=== PATIENT | female | born 1965 | race Asian ===

== ENCOUNTER → 2016-09-30 | Outpatient (CLI) | payer BC ==
--- NOTE | 2016-09-30 10:06 | MM ---
Reason for exam: screening (asymptomatic). Last mammogram was performed 1 year and 1 month ago. History: Benign US breast aspiration single LT of the left breast, September 23, 2014. Took hormonal contraceptives for 2 years. Physical Findings: A clinical breast exam by your physician is recommended on an annual basis and results should be correlated with mammographic findings. MG Screening Mammo w CAD Bilateral CC and MLO view(s) were taken. Prior study comparison: September 15, 2015, bilateral MG screening mammo w CAD. September 23, 2014, left breast MG diagnostic mammo LT wo CAD. September 13, 2014, bilateral MG screening mammo w CAD. September 10, 2013, bilateral MG screening mammo w CAD. The breast tissue is heterogeneously dense. This may lower the sensitivity of mammography. Finding: There is a 9 mm round mass in the lower inner quadrant, anterior position of the left breast. Previous mammotome biopsy in the left breast. Increase in size since September 15, 2015. ASSESSMENT: Incomplete: need additional imaging evaluation, BI-RAD 0 RECOMMENDATION: Ultrasound of the left breast. [facility] will attempt to contact patient to return for ultrasound.
== END | disposition home or self-care (01) ==
LOC: RADMAMWWP 08:36
PROVIDERS: ATTEND Family Medicine
DX: Z12.31 Encounter for screening mammogram for malignant neoplasm of breast (principal); R92.2 Inconclusive mammogram

== ENCOUNTER → 2016-10-01 | Outpatient (CLI) | payer BC ==
--- NOTE | 2016-10-01 11:23 | USB ---
Reason for exam: additional evaluation requested from abnormal screening. History: Benign US breast aspiration single LT of the left breast, September 23, 2014. Took hormonal contraceptives for 2 years. Physical Findings: Nurse did not find any significant physical abnormalities on exam. US Breast Workup Limited LT Left breast ultrasound demonstrates a 11 x 10 x 9mm septated cyst with debris at prior aspiration site at 9 o'clock. These results were verbally communicated with the patient and result sheet given to the patient on 10/01/16. ASSESSMENT: Suspicious, BI-RAD 4 RECOMMENDATION: Aspiration of the left breast. Called Dr. Delarosa/ Dr. Burns with mammographic findings and has scheduled an appointment for the patient for 10/16/16 at 10:[address] Da Silva. Left cyst aspiration scheduled for 10/09/16 at 2:20. PRELIMINARY REPORT CALLED AND FAXED TO DR. DA SILVA ON 10/01/16 AT 300/TMP.
== END | disposition home or self-care (01) ==
LOC: RADUSWWP 09:13
PROVIDERS: ATTEND Family Medicine
DX: R92.8 Other abnormal and inconclusive findings on diagnostic imaging of breast (principal)

== ENCOUNTER → 2016-10-09 | Day surgery (SDC) | payer BC ==
[2016-10-09 14:18] VITALS: RESP 16; BMI 30.2
--- NOTE | 2016-10-09 15:07 | USB ---
EXAMINATION TYPE: US breast aspiration single LT DATE OF EXAM: 10/09/2016 CLINICAL HISTORY: N63 Breast Lump/mass. Increasing size nonsimple cysts left breast. Abnormal ultrasound. TECHNIQUE: Ultrasound guided fine-needle aspiration of left breast. COMPARISON: Recent ultrasound October 01, 2016 and older studies. FINDINGS: The procedure of ultrasound guided fine-needle aspiration and/or core biopsy were both explained to the patient. Benefits, alternatives, and risks were discussed. An informed consent was then obtained. The patient was placed in supine positioning for imaging and for the procedure. Preprocedure imaging redemonstrates oval not completely anechoic slightly lobulated approximately 1 cm lesion 9:00 position in left breast. The overlying skin was prepped and draped in usual sterile fashion. Lidocaine is used as anesthetic into the skin and subcutaneous tissue up to tissue up to area of concern in the left breast. Under ultrasound guidance, a 20-gauge spinal needle advanced within the lesion and there is complete aspiration to resolution. Clip is not deployed as there is already clip present from prior aspiration at this level. There is no suspicious blood product, aspirated fluid was just over 1 cc of cloudy fluid. Biopsy was not performed as no suspicious residual area was identified after aspiration. The patient tolerated the procedure well without any immediate complication. The patient was kept in the radiology department for short stay after the procedure and then discharged home in stable condition. IMPRESSION: Successful, uncomplicated ultrasound guided fine-needle aspiration of area of concern in the left breast, full pathology results to follow. Low index of suspicion noted at time of procedure. Pathology Results: Benign BREAST, LEFT, FINE NEEDLE ASPIRATE: CYST MACROPHAGES AND APOCRINE CELLS CONSISTENT WITH APOCRINE CYST. RECOMMEND CLINICAL AND IMAGING CORRELATION AND FOLLOW UP INDICATED. Recommendation Follow up mammogram of the left breast in 6 months. MTDD
[2016-10-09 15:26] VITALS: BP 151/96; PULSE 83; TEMP 98.2
== END ==
LOC: RADUSWWP 13:47
PROVIDERS: ATTEND Surgery
DX: N60.02 Solitary cyst of left breast (principal); R92.8 Other abnormal and inconclusive findings on diagnostic imaging of breast
CPT/HCPCS: 88305; 88173; 76942; 19000; J2001

== ENCOUNTER → 2017-05-08 | Outpatient (CLI) | payer BC ==
--- NOTE | 2017-05-08 13:29 | MM ---
Reason for exam: follow-up at short interval from prior study. Last mammogram was performed 7 months ago. History: Benign US breast aspiration single LT of the left breast, October 09, 2016. Benign US breast aspiration single LT of the left breast, September 23, 2014. Took hormonal contraceptives for 2 years. Physical Findings: Nurse did not find any significant physical abnormalities on exam. MG Diagnostic Mammo LT w CAD CC and MLO view(s) were taken of the left breast. Prior study comparison: September 30, 2016, bilateral MG screening mammo w CAD. September 15, 2015, bilateral MG screening mammo w CAD. The breast tissue is heterogeneously dense. This may lower the sensitivity of mammography. Previous mammotome biopsy in the left breast. There is chronic nodularity in the left breast at clip. There is no discrete abnormality. These results were verbally communicated with the patient and result sheet given to the patient on 05/08/17. ASSESSMENT: Benign, BI-RAD 2 RECOMMENDATION: Return to routine screening mammogram schedule for both breasts. Back on schedule.
== END | disposition home or self-care (01) ==
LOC: RADMAMWWP 12:24
PROVIDERS: ATTEND Family Medicine
DX: R92.8 Other abnormal and inconclusive findings on diagnostic imaging of breast (principal)
CPT/HCPCS: 77065

== ENCOUNTER → 2017-10-20 | Outpatient (CLI) | payer BC ==
--- NOTE | 2017-10-21 09:44 | MM ---
Reason for exam: screening (asymptomatic). Last mammogram was performed 5 months ago. History: Benign US breast aspiration single LT of the left breast, October 09, 2016. Benign US breast aspiration single LT of the left breast, September 23, 2014. Took hormonal contraceptives for 2 years. Physical Findings: A clinical breast exam by your physician is recommended on an annual basis and results should be correlated with mammographic findings. MG Screening Mammo w CAD Bilateral CC and MLO view(s) were taken. Prior study comparison: May 08, 2017, left breast MG diagnostic mammo LT w CAD. September 30, 2016, bilateral MG screening mammo w CAD. The breast tissue is heterogeneously dense. This may lower the sensitivity of mammography. There is no discrete abnormality. No significant changes when compared with prior studies. ASSESSMENT: Negative, BI-RAD 1 RECOMMENDATION: Routine screening mammogram of both breasts in 1 year.
== END | disposition home or self-care (01) ==
LOC: RADMAMWWP 09:17
PROVIDERS: ATTEND Family Medicine
DX: Z12.31 Encounter for screening mammogram for malignant neoplasm of breast (principal)
CPT/HCPCS: 77067

== ENCOUNTER → 2018-11-05 | Outpatient (CLI) | payer BC ==
--- NOTE | 2018-11-06 09:54 | MM ---
Reason for exam: screening (asymptomatic). Last mammogram was performed 1 year and 1 month ago. History: Benign US breast aspiration single LT of the left breast, October 09, 2016. Benign US breast aspiration single LT of the left breast, September 23, 2014. Took hormonal contraceptives for 2 years. Physical Findings: A clinical breast exam by your physician is recommended on an annual basis and results should be correlated with mammographic findings. MG Screening Mammo w CAD Bilateral CC and MLO view(s) were taken. Prior study comparison: October 20, 2017, bilateral MG screening mammo w CAD. May 08, 2017, left breast MG diagnostic mammo LT w CAD. The breast tissue is heterogeneously dense. This may lower the sensitivity of mammography. Previous mammotome biopsy in the left breast. There is chronic nodularity in the left breast at clip. There is no discrete abnormality. ASSESSMENT: Benign, BI-RAD 2 RECOMMENDATION: Routine screening mammogram of both breasts in 1 year.
== END | disposition home or self-care (01) ==
LOC: RADMAMWWP 07:58
PROVIDERS: ATTEND Family Medicine
DX: Z12.31 Encounter for screening mammogram for malignant neoplasm of breast (principal)
CPT/HCPCS: 77067

== ENCOUNTER → 2020-01-12 | Outpatient (CLI) | payer BC ==
--- NOTE | 2020-01-14 10:41 | MM ---
Reason for exam: screening (asymptomatic). Last mammogram was performed 1 year and 2 months ago. History: Benign US breast aspiration single LT of the left breast, October 09, 2016. Benign US breast aspiration single LT of the left breast, September 23, 2014. Took hormonal contraceptives for 2 years. Physical Findings: A clinical breast exam by your physician is recommended on an annual basis and results should be correlated with mammographic findings. MG Screening Mammo w CAD Bilateral CC and MLO view(s) were taken. Prior study comparison: November 05, 2018, bilateral MG screening mammo w CAD. October 20, 2017, bilateral MG screening mammo w CAD. The breast tissue is heterogeneously dense. This may lower the sensitivity of mammography. Previous mammotome biopsy in the left breast. Focal asymmetry left lower inner quadrant. No significant changes when compared with prior studies. ASSESSMENT: Benign, BI-RAD 2 RECOMMENDATION: Routine screening mammogram of both breasts in 1 year.
== END | disposition home or self-care (01) ==
LOC: RADMAMWWP 08:45
PROVIDERS: ATTEND Family Medicine
DX: Z12.31 Encounter for screening mammogram for malignant neoplasm of breast (principal)
CPT/HCPCS: 77067

== ENCOUNTER → 2020-02-15 | Outpatient (CLI) | payer BC ==
--- NOTE | 2020-02-15 15:59 | BD ---
EXAMINATION TYPE: Axial Bone Density DATE OF EXAM: 02/15/2020 COMPARISON: NONE CLINICAL HISTORY: 54 YR OLD FEMALE....ICD-10 CODE: Z13.820 OSTEOPOROSIS SCREENING, M89.9 BONE DISO RDER Height: 58.2 Weight: 159 FRAX RISK QUESTIONS: NOTHING TO NOTE HERE RISK FACTORS HISTORY OF: Diet low in dairy products/other sources of calcium: YES Postmenopausal woman: YES, AT 53 Hyperparathyroidism: NO Adrenal Insufficiency: NO MEDICATIONS: Additional Medications: VIT D AND IRON PILLS Additional History: NOTHING ADDITIONAL TO NOTE HERE EXAM MEASUREMENTS: Bone mineral densitometry was performed using the [employer] System. Bone mineral density as measured about the Lumbar spine is: ----- L1-L4(G/cm2): 1.108 T Score Values are as follows: ----- L1: -0.3 ----- L2: -1.4 ----- L3: -1.0 ----- L4: 0.2 ----- L1-L4: -0.6 Bone mineral density THIS IS HER FIRST BONE DENSITY.....BASELINE STUDY Bone mineral density about the R hip (g/cm2): 1.123 Bone mineral density about the L hip (g/cm2): 1.164 T Score values are as follows: -----R Neck: -0.5 -----L Neck: -0.6 -----R Total: 0.9 -----L Total: 1.2 Bone mineral density BASELINE STUDY FRAX%s: THERE IS A 2.7% CHANCE FOR A MAJOR OSTEOPOROTIC FX AND A 0.1% FOR HIP......PROBABILITY FOR FX IN 10 YRS TIME IMPRESSION: Normal (Values between +1 and -1 indicate normal bone mass). Consider repeating this study in 5 year s or sooner if there is some new clinical indication. NOTE: T-SCORE=SD OF THE YOUNG ADULT MEAN.
== END | disposition home or self-care (01) ==
LOC: RADBDWWP 09:04
PROVIDERS: ATTEND Obstetrics & Gynecology
DX: Z13.820 Encounter for screening for osteoporosis (principal)
CPT/HCPCS: 77080

== ENCOUNTER → 2021-02-08 | Outpatient (CLI) | payer BC ==
--- NOTE | 2021-02-09 10:58 | MM ---
Reason for exam: screening (asymptomatic). Last mammogram was performed 1 year and 1 month ago. History: Patient is postmenopausal. Benign US breast aspiration single LT of the left breast, October 09, 2016. Benign US breast aspiration single LT of the left breast, September 23, 2014. Took hormonal contraceptives for 2 years. Physical Findings: A clinical breast exam by your physician is recommended on an annual basis and results should be correlated with mammographic findings. MG Screening Mammo w CAD Bilateral CC and MLO view(s) were taken. Prior study comparison: January 12, 2020, bilateral MG screening mammo w CAD. November 05, 2018, bilateral MG screening mammo w CAD. October 20, 2017, bilateral MG screening mammo w CAD. The breast tissue is heterogeneously dense. This may lower the sensitivity of mammography. Previous mammotome biopsy in the left breast at chronic nodularity. There is no new dominant lesion. ASSESSMENT: Benign, BI-RAD 2 RECOMMENDATION: Routine screening mammogram of both breasts in 1 year.
== END | disposition home or self-care (01) ==
LOC: RADMAMWWP 13:44
PROVIDERS: ATTEND Family Medicine
DX: Z12.31 Encounter for screening mammogram for malignant neoplasm of breast (principal); Z78.0 Asymptomatic menopausal state
CPT/HCPCS: 77067

== ENCOUNTER 2021-03-20 06:18 | Day surgery (SDC) | payer BC ==
[2021-03-15 12:33] VITALS: BMI 27.3
--- NOTE | 2021-03-19 20:47 | P.HPOB ---
History of Present Illness H&P Date: 03/19/21 Chief Complaint: Postmenopausal bleeding, endometrial thickening This is a 55 y.o. female, 3, para 3, who presents for dilatation and curettage with hysteroscopy due to postmenopausal bleeding and endometrial thickening on ultrasound. She went 13 months without a period and then bled for 4 days. She did the same thing the year prior. Ultrasound showed an enlarged fibroid uterus measuring 14.3 x 13.4 x 7.6 cm with endometrial thickness of 17.7 mm, thickened and avascular. Largest fibroid measured up to 5.7 cm. Small left ovarian cyst measuring 2.1 cm noted. OB Hx: . History of 3 vaginal deliveries. 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 History of tubal ligation. Socail Hx: . Homemaker. Review of Systems Constitutional: Denies chills, Denies fever Eyes: denies blurred vision, denies pain Ears, nose, mouth and throat: Denies headache, Denies sore throat Cardiovascular: Denies chest pain, Denies shortness of breath Respiratory: Denies cough Gastrointestinal: Denies abdominal pain, Denies diarrhea, Denies nausea, Denies vomiting Genitourinary: Reports abnormal vaginal bleeding, Reports dysmenorrhea, Reports urinary frequency, Denies pelvic pain Musculoskeletal: Denies myalgias Integumentary: Denies pruritus, Denies rash Neurological: Denies numbness, Denies weakness Psychiatric: Denies anxiety, Denies depression Endocrine: Denies fatigue, Denies weight change Past Medical History Past Medical History: No Reported History History of Any Multi-Drug Resistant Organisms: None Reported Past Surgical History: Breast Surgery Additional Past Surgical History / Comment(s): left breast [id number]. Past Anesthesia/Blood Transfusion Reactions: No Reported Reaction Past Psychological History: No Psychological Hx Reported Smoking Status: Never smoker Past Alcohol Use History: None Reported Past Drug Use History: None Reported - Past Family History Mother Family Medical History: No Reported History Medications and Allergies Home Medications Medication Instructions Recorded Confirmed Type Cholecalciferol [Vitamin D3 (25 50 mcg PO DAILY 03/20/21 03/20/21 History Mcg = 1000 Iu)] Allergies Allergy/AdvReac Type Severity Reaction Status Date / Time No Known Allergies Allergy Verified 03/20/21 06:51 Exam Osteopathic Statement: *. No significant issues noted on an osteopathic structural exam other than those noted in the History and Physical/Consult. HEENT: within normal limits Heart: regular rate and rhythm Lungs: clear to auscultation bilaterally Abdomen: soft, non-tender, uterus enlarged up to umbilicus Pelvic: Cervix multiparous, uterus enlarged approximately 20 weeks size, non- tender, no adnexal masses palpated. Extremities: neg. Teresa's Assessment and Plan (1) Postmenopausal bleeding Current Visit: No Status: Acute Code(s): N95.0 - POSTMENOPAUSAL BLEEDING SNOMED Code(s): 40118481 (2) Endometrial thickening on ultrasound Current Visit: No Status: Acute Code(s): R93.89 - ABNORMAL FINDINGS ON DX IMAGING OF OTH BODY STRUCTURES SNOMED Code(s): 560913933 Plan: Proceed with dilatation and curettage with hysteroscopy. I have discussed the risks, benefits, and alternative therapies for the above- mentioned procedure and for both sedation/anesthesia as well as necessary blood products administration, if indicated, as they pertain to this patient. The patient has indicated her understanding and acceptance of the risks and procedures discussed.
[~2021-03-20 06:18] MED LIST: DEXAMETHASONE SOD PHOSPHATE 4 MG/ML 1 ML VIAL IV ONE; LACTATED RINGERS 1,000 ML IV SCH; LIDOCAINE 1% (10MG/ML) FOR IV START INTRADERMA PRN; ONDANSETRON 4 MG/2 ML VIAL IVP ONE; Pre Op ABX Message 1 EACH MISC MISCELLANE ONE; SCOPOLAMINE 1.5MG/72HR PATCH TRANSDERM ONE
[2021-03-20] MEDS ORDERED: HYDROmorphone 0.5 MG/0.5 ML SYRINGE IVP PRN (07:00)
[2021-03-20] MEDS ORDERED: LIDOCAINE 1% INJ 10MG/ML (20 ML MDV) ONE (07:26)
[2021-03-20] MEDS ORDERED: KETOROLAC 15 MG/ML 1 ML VIAL ONE (07:26)
[2021-03-20] MEDS ORDERED: fentaNYL (PF) 50 MCG/ML 2 ML AMP ONE (07:26)
[2021-03-20] MEDS ORDERED: PROPOFOL 10 MG/ML 20 ML VIAL IV ONE (07:26)
[2021-03-20] MEDS ORDERED: MIDAZOLAM 2 MG/2 ML VIAL ONE (07:26)
--- NOTE | 2021-03-20 07:58 | P.OP ---
Date of Procedure: 03/20/21 Preoperative Diagnosis: Postmenopausal bleeding Endometrial thickening Postoperative Diagnosis: Same Procedure(s) Performed: Dilation and curettage with hysteroscopy Anesthesia: other (Mask general) Clinical Documentation Consultant #1: Ashley Vick Estimated Blood Loss (ml): 5 Pathology: other (Endometrial curettings) Condition: stable Disposition: same day Indications for Procedure: This is a 55 y.o. female, 3, para 3, who presents for dilatation and curettage with hysteroscopy due to postmenopausal bleeding and endometrial thickening on ultrasound. She went 13 months without a period and then bled for 4 days. She did the same thing the year prior. Ultrasound showed an enlarged fibroid uterus measuring 14.3 x 13.4 x 7.6 cm with endometrial thickness of 17.7 mm, thickened and avascular. Largest fibroid measured up to 5.7 cm. Small left ovarian cyst measuring 2.1 cm noted. Operative Findings: Uterus is enlarged and bulky up to almost 20 weeks size on palpation with nodularity. Uterus is sounded to 12-1/2 cm. Upon hysteroscopy, an irregular contour was noted consistent with fibroid change. There was a fairly large polyp noted within the endometrium. Both tubal ostia are visualized. Background endometrium did appear fairly atrophic. No adnexal masses are palpated. Description of Procedure: Patient is taken to the operating room where she is placed in the dorsal lithotomy position. She is prepped and draped in the normal sterile fashion. Her bladder is drained with a catheter. Examination is performed under anesthesia. Uterus is found to be very bulky and anteverted size. No adnexal masses are palpated. Next a weighted speculum was placed in the patient's vagina and a right angle retractor was used to visualize the cervix. The anterior lip of the cervix is grasped with a single-tooth tenaculum. The cervix is gently dilated with Martini dilators and then a uterine sound was placed. Uterus is sounded to 12 cm. Next the cervix is gently dilated further until a hysteroscope could be passed. Hysteroscopy is performed using normal saline. The above noted findings are made and pictures are taken. Hysteroscope was withdrawn and then a polyp forceps was introduced and the polyp is removed. Ne xt a medium-size sharp curet was introduced and sharp curettage was performed until a gritty texture is noted. A very irregular contour is noted consistent with submucosal fibroids. Minimal further tissue was obtained. Next the specimen is removed from the field and sent to pathology. The single-tooth tenaculum is removed and no bleeding is noted. All instruments are removed from the vagina. All sponge and needle counts are correct. The patient is then taken to recovery room in stable condition.
[2021-03-20 08:17] VITALS: TEMP 96.8
[2021-03-20 08:24] VITALS: RESP 16
[2021-03-20 08:54] VITALS: BP 163/89; PULSE 65
== END 2021-03-20 09:22 | disposition home or self-care (01) ==
LOC: OR 06:18
PROVIDERS: ATTEND Obstetrics & Gynecology
DX: N95.0 Postmenopausal bleeding (principal); R93.89 Abnormal findings on diagnostic imaging of other specified body structures; N84.0 Polyp of corpus uteri; Z98.890 Other specified postprocedural states; I10 Essential (primary) hypertension; N83.202 Unspecified ovarian cyst, left side
CPT/HCPCS: 81025; 88305; 58558; J2250; J1100; J2405; J2001; J3010; J1885; J2704

== ENCOUNTER → 2022-02-13 | Outpatient (CLI) | payer BC ==
--- NOTE | 2022-02-14 08:30 | MM ---
Reason for Exam: Screening (asymptomatic). Last screening mammogram was performed 12 month(s) ago. Patient History: Menarche at age 13. First Full-Term at age 22. Postmenopausal. Patient used Hormonal Contraceptives for 2 years. 10/09/2016, Benign Cyst Aspiration on the left side. 09/23/2014, Benign Cyst Aspiration on the left side. Risk Values: Susi 5 year model risk: 1.1%. NCI Lifetime model risk: 7.2%. Prior Study Comparison: 11/05/2018 Bilateral Screening Mammogram, [facility]. 01/12/2020 Bilateral Screening Mammogram, [facility]. 02/08/2021 Bilateral Screening Mammogram, [facility]. Tissue Density: The breast tissue is heterogeneously dense. This may lower the sensitivity of mammography. Findings: Analyzed By CAD. There is no suspicious group of microcalcifications or new suspicious mass in either breast. Previous mammotome biopsy in the left breast chronic nodularity. No significant change from prior exams. Overall Assessment: Benign, BI-RAD 2 Management: Screening Mammogram of both breasts in 1 year. A clinical breast exam by your physician is recommended on an annual basis and results should be correlated with mammographic findings. Electronically signed and approved by: Henrik Lopez D.O.
--- NOTE | 2022-02-14 08:30 | MM ---
Reason for Exam: Screening (asymptomatic). Last screening mammogram was performed 12 month(s) ago. Patient History: Menarche at age 13. First Full-Term at age 22. Postmenopausal. Patient used Hormonal Contraceptives for 2 years. 10/09/2016, Benign Cyst Aspiration on the left side. 09/23/2014, Benign Cyst Aspiration on the left side. Risk Values: Susi 5 year model risk: 1.1%. NCI Lifetime model risk: 7.2%. Prior Study Comparison: 11/05/2018 Bilateral Screening Mammogram, [facility]. 01/12/2020 Bilateral Screening Mammogram, [facility]. 02/08/2021 Bilateral Screening Mammogram, [facility]. Tissue Density: The breast tissue is heterogeneously dense. This may lower the sensitivity of mammography. Findings: Analyzed By CAD. There is no suspicious group of microcalcifications or new suspicious mass in either breast. Previous mammotome biopsy in the left breast chronic nodularity. No significant change from prior exams. Overall Assessment: Benign, BI-RAD 2 Management: Screening Mammogram of both breasts in 1 year. A clinical breast exam by your physician is recommended on an annual basis and results should be correlated with mammographic findings. Electronically signed and approved by: Henrik Lopez D.O.
== END | disposition home or self-care (01) ==
LOC: RADMAMWWP 13:24
PROVIDERS: ATTEND Family Medicine
DX: Z12.31 Encounter for screening mammogram for malignant neoplasm of breast (principal); Z78.0 Asymptomatic menopausal state
CPT/HCPCS: 77067

== ENCOUNTER → 2023-01-14 | Outpatient (CLI) | payer BC | END | disposition home or self-care (01) | LOC: LABPAT 11:35 | PROVIDERS: ATTEND Orthopaedic Surgery | DX: Z01.812 Encounter for preprocedural laboratory examination (principal); Z22.322 Carrier or suspected carrier of Methicillin resistant Staphylococcus aureus; M16.11 Unilateral primary osteoarthritis, right hip | CPT/HCPCS: 87070 ==

== ENCOUNTER → 2023-02-28 | Outpatient (CLI) | payer BC ==
--- NOTE | 2023-03-03 08:59 | MM ---
Reason for Exam: Screening (asymptomatic). Last mammogram was performed 1 year(s) and 1 month(s) ago. Patient History: Menarche at age 13. First Full-Term at age 22. Postmenopausal. Patient used Hormonal Contraceptives for 2 years. 10/09/2016, Benign Cyst Aspiration on the left side. 09/23/2014, Benign Cyst Aspiration on the left side. Risk Values: Susi 5 year model risk: 1.1%. NCI Lifetime model risk: 7.1%. Prior Study Comparison: 01/12/2020 Bilateral Screening Mammogram, [facility]. 02/08/2021 Bilateral Screening Mammogram, [facility]. 02/13/2022 Bilateral MG screening mammo w CAD, [facility]. Tissue Density: The breast tissue is heterogeneously dense. This may lower the sensitivity of mammography. Findings: Analyzed By CAD. Pattern appears symmetrical and stable. Benign calcification is within the right breast. There is a persistent oval density with circumscribed margins within the lower inner aspect left breast anterior position. Core marker is within the left breast. No suspicious groups of microcalcifications, spiculated or lobular masses, architectural distortion or other secondary signs of malignancy are mammographically apparent. Overall Assessment: Benign, BI-RAD 2 Management: Screening Mammogram of both breasts in 1 year. A negative mammogram report should not preclude additional follow up of suspicious palpable abnormalities. Patient should continue monthly self breast exam. A clinical breast exam by your physician is recommended on an annual basis and results should be correlated with mammographic findings. Electronically signed and approved by: Julian Gasca D.O. Radiologis
== END | disposition home or self-care (01) ==
LOC: RADMAMWWP 08:29
PROVIDERS: ATTEND Family Medicine
DX: Z12.31 Encounter for screening mammogram for malignant neoplasm of breast (principal); Z78.0 Asymptomatic menopausal state
CPT/HCPCS: 77067

== ENCOUNTER → 2024-03-09 | Outpatient (CLI) | payer BC ==
--- NOTE | 2024-03-13 22:34 | MM ---
Reason for Exam: Screening (asymptomatic). Last screening mammogram was performed 12 month(s) ago. Patient History: Menarche at age 13. First Full-Term at age 22. Postmenopausal. Patient used Hormonal Contraceptives for 2 years. 10/09/2016, Benign Cyst Aspiration on the left side. 09/23/2014, Benign Cyst Aspiration on the left side. Risk Values: Susi 5 year model risk: 1.2%. NCI Lifetime model risk: 6.9%. Prior Study Comparison: 02/08/2021 Bilateral Screening Mammogram, [facility]. 02/13/2022 Bilateral MG screening mammo w CAD, [facility]. 02/28/2023 Bilateral MG screening mammo w CAD, [facility]. Tissue Density: There are scattered areas of fibroglandular density. Findings: Analyzed By CAD. The pattern is symmetrical. A benign spherical calcifications within the right breast. Core marker is within the left breast. There is a small asymmetry within the medial left breast on the craniocaudal projection near the prior biopsy site. This however appears to be new. Additional workup is recommended Right breast:No suspicious groups of microcalcifications, spiculated or lobular masses, architectural distortion or other secondary signs of malignancy are mammographically apparent.The pattern is symmetrical. A benign spherical calcification is within the right breast. Core marker is within the left breast. There is a small asymmetry within the medial left breast on the craniocaudal projection near the prior biopsy site. This however appears to be new. Additional workup is recommended Right breast:No suspicious groups of microcalcifications, spiculated or lobular masses, architectural distortion or other secondary signs of malignancy are mammographically apparent. Overall Assessment: Incomplete: need additional imaging evaluation, BI-RAD 0 Management: Diagnostic Mammogram of the left breast. A negative mammogram report should not preclude additional follow up of suspicious palpable abnormalities. Patient should continue monthly self breast exam. A clinical breast exam by your physician is recommended on an annual basis and results should be correlated with mammographic findings. Note on Susi scores and lifetime risk: 1. A Susi score greater than 3% is considered moderate risk. If this is the case, consider specialist referral to assess eligibility for a risk reducing agent. 2. If overall lifetime risk for the development of breast cancer is 20% or higher, the patient may qualify for future screening with alternating mammogram and breast MRI. [facility], , 03/13/2024 10:32 PM. Electronically signed and approved by: Julian Gasca D.O. Radiologis
== END | disposition home or self-care (01) ==
LOC: RADMAMWWP 14:55
PROVIDERS: ATTEND Family Medicine
DX: Z12.31 Encounter for screening mammogram for malignant neoplasm of breast (principal); R92.323 Mammographic fibroglandular density, bilateral breasts; Z78.0 Asymptomatic menopausal state
CPT/HCPCS: 77067

== ENCOUNTER → 2024-03-17 | Outpatient (CLI) | payer BC ==
--- NOTE | 2024-03-17 10:01 | MM ---
Reason for Exam: Additional evaluation requested from abnormal screening. Last screening mammogram was performed less than 1 month ago. Patient History: Menarche at age 13. First Full-Term at age 22. Postmenopausal. Patient used Hormonal Contraceptives for 2 years. 10/09/2016, Benign Cyst Aspiration on the left side. 09/23/2014, Benign Cyst Aspiration on the left side. Risk Values: Susi 5 year model risk: 1.2%. NCI Lifetime model risk: 6.9%. Prior Study Comparison: 02/13/2022 Bilateral MG screening mammo w CAD, [facility]. 02/28/2023 Bilateral MG screening mammo w CAD, [facility]. 03/09/2024 Bilateral MG screening mammo w CAD, [facility]. Tissue Density: Left: The breasts are heterogeneously dense, which may obscure small masses. Findings: Analyzed By CAD. No distinct persistent nodule or mass. Overall Assessment: Negative, BI-RAD 1 Management: Screening Mammogram of both breasts in 1 year. . Results were given to the patient verbally at the time of exam. Patient should continue monthly self-breast exams. A clinical breast exam by your physician is recommended on an annual basis. This exam should not preclude additional follow-up of suspicious palpable abnormalities. Note on Susi scores and lifetime risk: 1. A Susi score greater than 3% is considered moderate risk. If this is the case, consider specialist referral to assess eligibility for a risk reducing agent. 2. If overall lifetime risk for the development of breast cancer is 20% or higher, the patient may qualify for future screening with alternating mammogram and breast MRI. [facility], , 03/17/2024 9:59 AM. Electronically signed and approved by: Demetrius Bass M.D. Radiologis
== END | disposition home or self-care (01) ==
LOC: RADMAMWWP 09:45
PROVIDERS: ATTEND Family Medicine
DX: R92.8 Other abnormal and inconclusive findings on diagnostic imaging of breast (principal); R92.332 Mammographic heterogeneous density, left breast; Z78.0 Asymptomatic menopausal state
CPT/HCPCS: 77061; 77065